=== PATIENT | female | born 1985 | race Hispanic/Latino ===

== ENCOUNTER 2018-05-27 12:11 | Inpatient (IN) | payer OTHER ==
[2018-05-27] MEDS ORDERED: Betamet Acet/Betamet Na Ph 30 MG/5 ML VIAL ONE (12:44)
[2018-05-27] MEDS ORDERED: Ondansetron PF 4 MG/2 ML Vial IVP PRN ×3 (12:53→17:27)
[2018-05-27] MEDS ORDERED: Promethazine HCl 25 MG/ML VIAL IM PRN ×2 (12:53→14:15)
[2018-05-27] MEDS ORDERED: NS / Oxytocin 40 units/1000ml 1,000 ML IV PRN (12:53)
[2018-05-27] MEDS ORDERED: Lidocaine 1% (PF) 30 ML VIAL SC PRN (12:53)
--- NOTE | 2018-05-27 13:03 | PDOC.LDHP ---
Labor and Delivery H&P Chief complaint: other HPI: Pt is a 32yo @ 33.2 weeks sent from clinic with abnormal antepartum surveillance for IUGR dx @ 32 weeks. Pt was dx approx one week age with IUGR @ 1%, TORCH labs drawn and MFM referral sent. Pt has not yet seen MFM, came today for BPP. BPP 2/8 (points only for movement) with decrease in SASKIA to 2cm from 12cm, denies LOF or leakage since last week. Pt also with abnormal UA doppler w SD appro x-5.6. Pt does report decreased FM over the last 24 hours. No PIH sx no labor sx. Current gestational age (weeks): 33 Due date: 07/13/18 Grav: 3 Para: 2 OB History Details: 2 x 2, this preg with noted thrombocytopenia and IUGR @ approx 32 weeks Current complications: IUGR, oligohydramnios, breech Abnormal US findings: Yes (breech, SASKIA 2cm, BPP 2/8, abn UA doppler) Current medications: pre- vitamins Previous surgical history: none Allergies/Adverse Reactions: Allergies Allergy/AdvReac Type Severity Reaction Status Date / Time No Known Allergies Allergy Verified 05/27/18 13:07 Social history: none - Physical Exam Vital signs reviewed and normal: yes (mild range BP noted on intake) General: NAD Heart: RRR Lungs: CTAB Abdomen: gravid Extremeties: no edema FHT: category 2 - OB Labs HIV: negative RPR: negative HEPSAg: negative Additional Labs: TORCH pending from last week - Assessment L&D Assessment: medically indicated induction - Plan Plan: admit to L&D, informed consent obtained, anesthesia consult for pain management -: A/P: 32yo @ 33.2 weeks with IUGR now breech with oligohydramnios, abn SD ratio, and decelerations on FHT. Pt rec'd Celestone approx 1 hr ago and has been counseled on risk and benefits of CS. Pt and are aware that our NICU is on divert and that after stablization the baby will be transported to the nearest NICU that can accept care. NICU in house aware and will be present for delivery.
[2018-05-27 13:08] VITALS: BMI 27.8
[2018-05-27] MEDS ORDERED: CEFAZOLIN 2 GM in Premix Bag 1 BAG IVPB SCH (13:15)
[2018-05-27] MEDS ORDERED: Bicitra 30 ML UDCUP PO SCH (13:15)
[2018-05-27] MEDS ORDERED: Midazolam HCl 2 mg/2 ml Vial ONE (13:20)
[2018-05-27] MEDS ORDERED: Fentanyl 250 MCG/5 ML VIAL ONE (13:20)
[2018-05-27] MEDS ORDERED: Oxytocin 10 UNITS/ML VIAL ONE (13:21)
[2018-05-27] MEDS ORDERED: Succinylcholine Chloride 20 MG/ML 10 ml SYRINGE FS ONE ×2 (13:21→14:10)
[2018-05-27] MEDS ORDERED: PROPOFOL 20 ML ONE (13:21)
[2018-05-27] MEDS ORDERED: Ondansetron PF 4 MG/2 ML Vial ONE ×2 (13:21→14:10)
[2018-05-27 13:29] LABS: Hemoglobin 14.3 g/dL (12.0-16.0); Mean Corpuscular HGB CONC 34.6 g/dL (32.0-36.0); Mean Corpuscular Hemoglobin 32.8 pg (27.0-31.0); Mean Corpuscular Volume 94.8 fL (78.0-98.0); RBC Distribution Width 11.7 % (11.5-14.5); Red Blood Cell (RBC) Count 4.37 mill/uL (4.20-5.40); White Blood Cell (WBC) Count 8.3 thou/uL (4.8-10.8)
[2018-05-27 13:44] LABS: Mean Platelet Volume 12.1 fL (7.4-10.4); Platelet Count 72 thou/uL (130-400)
[2018-05-27 13:58] LABS: HBSAg Index 0.25 S/CO (0-0.99); Hep B Surf Ag Non-Reactive S/CO (NonReactive); Syphilis Antibody Nonreactive (Nonreactive); Syphilis Antibody Index 0.03 S/CO (<1.00 Non-Reactive)
[2018-05-27] MEDS ORDERED: PROPOFOL 200 MG/20 ML VIAL ONE (14:10)
[2018-05-27] MEDS ORDERED: diphenhydrAMINE 25 MG CAP PO PRN ×2 (14:15→17:27)
[2018-05-27] MEDS ORDERED: Meperidine HCl/PF 25 MG/ML VIAL SLOW IVP PRN (14:15)
[2018-05-27] MEDS ORDERED: Communication Order-Pharmacy FS SCH (14:15)
[2018-05-27] MEDS ORDERED: fentaNYL Citrate/PF 2,000 MCG in Sodium Chloride 0.9% 60 ML IV PRN (14:15)
[2018-05-27] MEDS ORDERED: diphenhydrAMINE 50 MG/ML VIAL IM PRN (14:15)
[2018-05-27] MEDS ORDERED: Zolpidem Tartrate 5 MG TAB PO PRN (14:15)
[2018-05-27] MEDS ORDERED: L&D-Morphine 4 MG/ML VIAL SLOW IVP PRN (14:15)
[2018-05-27] MEDS ORDERED: Naloxone HCl 0.4 mg/ml Vial IV PRN (14:15)
[2018-05-27] MEDS ORDERED: HYDROmorphone 2 MG/ML VIAL SLOW IVP PRN (14:15)
[2018-05-27] MEDS ORDERED: diphenhydrAMINE 50 MG/ML VIAL IVP PRN (14:15)
[2018-05-27] MEDS ORDERED: Ketorolac Tromethamine 30 MG/ML VIAL IVP SCH (14:15)
[2018-05-27] MEDS ORDERED: Ondansetron HCl/PF 4 MG/2 ML Vial IVP PRN (14:15)
--- NOTE | 2018-05-27 14:24 | PDOC.OPDEL ---
OB Operative/Delivery Note Delivery Dr/Surgeon: Marcos Assist: Arnaud Pre-Delivery Diagnosis: medically indicated induction (IUGR, oligo, abn UA dopplers, BPP 2/8 and NRFHT on L and D) Procedure/Post Delivery Dx: primary low transverse CS Weeks gestation: 33 - Additional Findings/Plan Placenta delivered: manual removal findings: low transverse hysterotomy without extension, normal uterus, normal tubes, normal ovaries Estimated blood loss: 600ml Compilations/Other Findings: small for GA male infant, cry immediately at delivery, delivered from Prasanna breech Post delivery plan: routine recovery
[2018-05-27 15:06] LABS: Actual Bicarbonate (HCO3a) 26.4 mEq/L (22-28); Analyzer IN Cardio OR; Base Excess (BEa) -4.8 mEq/L (-2.0 to +3.0)
[2018-05-27] MEDS ORDERED: Adacel (T-DAP) 0.5 ML SYRINGE IM ONE (17:27)
[2018-05-27] MEDS ORDERED: Simethicone Chewable 80 MG TAB PO PRN (17:27)
[2018-05-27] MEDS ORDERED: Bisacodyl 10 MG SUPP PR PRN (17:27)
[2018-05-27] MEDS ORDERED: HYDROcodone/Acetaminophen 5/325 mg Tablet PO PRN (17:27)
[2018-05-27] MEDS ORDERED: Lanolin Ointment 7 GM TUBE TOP PRN (17:27)
[2018-05-27] MEDS ORDERED: Meperidine HCl/PF 25 MG/ML VIAL IM PRN (17:27)
[2018-05-27] MEDS ORDERED: NS / Oxytocin 40 units/1000ml 1,000 ML IV SCH (17:27)
[2018-05-27] MEDS ORDERED: Acetaminophen 325 MG TAB PO PRN (17:27)
--- NOTE | 2018-05-27 18:57 | OP ---
DATE OF PROCEDURE: 05/27/2018 PREOPERATIVE DIAGNOSES: 1. A 32-year-old, G3, P2 at 33 weeks and 2 days. 2. Intrauterine growth restriction. 3. Oligohydramnios. 4. Abnormal SD ratio. 5. BPP 2/8. 6. Nonreassuring heart tracing. 7. Thrombocytopenia. POSTOPERATIVE DIAGNOSIS: Status post primary low transverse section. [employer] LIBRARIAN: Brandon Lares MD ANESTHESIA: GETA per Dr. Allen. FINDINGS: 1. Low transverse hysterotomy without extension. 2. Hysterotomy hemostatic after closure. 3. Small with cry immediately delivered from bernadette breech presentation. Apgars and weight pending at the time of dictation now. 4. Placenta sent to Pathology. Cord gas pending. Cord blood collected. 5. Normal-appearing uterus, tubes, and ovaries bilaterally. 6. Surgical site hemostatic. INDICATIONS FOR PROCEDURE: Ms. Eurm Lopez is being followed closely in the office for intrauterine growth restriction with torch panels previously ordered and pending at the time of delivery. The patient presented today for scheduled ultrasound and was noted to have a decrease in her amniotic fluid from 12 cm to 2 cm. A biophysical profile was 2/8 and her umbilical artery Doppler was abnormal at - 5.6. The patient was sent to Labor and Delivery for monitoring. On Labor and Delivery, she received one dose of Celestone for lung maturity. She was counseled on observation versus transport versus expedited delivery and transport of the as our NICU was on divert. During short observation period of approximately an hour, the patient was noted to have spontaneous decelerations to the 60 to 80 beats per minute. The patient was counseled for the indication for section. DESCRIPTION OF PROCEDURE: The patient was taken back to the OR with IV fluids running because of thrombocytopenia with platelets of 72. The patient received general anesthesia. 2 g of Ancef was administered prior to the induction of anesthesia, and the prior to induction of anesthesia, the patient's abdomen had been prepped and draped in normal fashion for section. The surgeons were gowned, gloved, and ready to start the procedure. Once the patient was asleep, a Pfannenstiel skin incision was made with a scalpel. Skin incision was carried down through the subcutaneous tissue to the fascia. Once the fascia was reached, it was incised in the midline bluntly extended. Rectus muscles were bluntly entered. The peritoneum was bluntly entered and stretched laterally. An Raphael O retractor was placed into the abdominal cavity. Lower uterine segment was noted, and a low transverse hysterotomy was made with a scalpel. The uterus was bluntly entered. Scant amniotic fluid was noted. The infant's buttock was presenting at the hysterotomy with gentle pressure. The infant's buttock, lower extremities, and shoulders delivered spontaneously with gentle rotation. The head delivered easily as well. The baby was noted to have immediate cry after delivery. The nose and mouth were suctioned. The cord was doubly clamped and cut, and the was handed off to the NICU physician and nurses present. Cord blood was collected. The cord segment was collected. The placenta was delivered and sent for pathologic review. The uterus was exteriorized, massaged to firm, and cleared of clot and debris with a clean dry sponge. The hysterotomy was inspected with no extension noted. Monocryl suture was used in a running locked fashion to reapproximate hysterotomy. After the hysterotomy was closed, it was copiously irrigated and suctioned dry. No areas of bleeding were noted. The Raphael O retractor was then removed from the abdominal cavity. The muscle belly and fascia were inspected, and any small areas of bleeding were controlled with Bovie cauterization. The fascia was closed with PDS suture from corner to corner. The subcutaneous tissue was then irrigated and dried. Any small areas of bleeding were controlled with Bovie cauterization. Plain gut suture was used to reapproximate the subcutaneous layer. The skin was reapproximated with 4-0 Monocryl and dressed with Dermabond dressing. The uterine fundus was noted to be firm. There was minimal bleeding noted post as lochia. The patient was extubated and transferred to the recovery room in good condition. Job ID: [id number] [facility]
[2018-05-27] MEDS: Lactated Ringer's 1,000 ML IV SCH ×2 (22:57→22:58)
[2018-05-27] MEDS: Ketorolac Tromethamine 30 MG/ML VIAL IVP SCH (22:59)
[2018-05-27] MEDS: Docusate Calcium (SURFAK) 240 MG CAP PO SCH (22:59)
[2018-05-28] MEDS: Ketorolac Tromethamine 30 MG/ML VIAL IVP SCH ×3 (02:31→12:22)
[2018-05-28 07:56] LABS: Mean Corpuscular HGB CONC 34.9 g/dL (32.0-36.0); Mean Corpuscular Hemoglobin 33.1 pg (27.0-31.0); Mean Corpuscular Volume 94.8 fL (78.0-98.0); Mean Platelet Volume 11.4 fL (7.4-10.4); Platelet Count 84 thou/uL (130-400); RBC Distribution Width 11.7 % (11.5-14.5); Red Blood Cell (RBC) Count 4.24 mill/uL (4.20-5.40); White Blood Cell (WBC) Count 11.7 thou/uL (4.8-10.8)
[2018-05-28] MEDS: Lactated Ringer's 1,000 ML IV SCH ×3 (08:15→21:53)
[2018-05-28] MEDS: Docusate Calcium (SURFAK) 240 MG CAP PO SCH ×2 (08:25→21:52)
[2018-05-28] MEDS: Prenatal Vitamin 1 TAB PO SCH (08:25)
--- NOTE | 2018-05-28 10:26 | PDOC.PP ---
Post Progress Note Post Day #: 1 Subjective: POD1 sp 1CS for abnormal antepartum surveillance w IUGR. Doing well, minimal pain controlled w PROJ MGR, no N/V. Baby at S and W in CS, doing well per mom. PO intake tolerated: yes Flatus: yes Ambulation: yes Vital Signs (12 hours) Temp Pulse Resp BP Pulse Ox 05/28/18 07:55 97.8 F 89 20 153/88 H 99 05/28/18 05:00 98.8 F 69 18 120/63 05/28/18 00:50 98.2 F 69 18 116/76 Weight Weight 138 lb - Physical Examination General: NAD Respiratory: clear to auscultation bilaterally, non-labored breathing Abdominal: no distention Extremities: negative homans (B) Skin: CS incision dry & intact, no rash Neurological: no gross focal deficits Psychiatric: A&Ox3, normal affect Result Diagrams: 05/28/18 07:07 Additional Labs: Post Labs Blood Type O POSITIVE 05/27/18 15:26 Hep Bs Antigen Non-Reactive S/CO (NonReactive) 05/27/18 13:02 (1) delivery delivered Code(s): O82 - ENCOUNTER FOR DELIVERY WITHOUT INDICATION Status: Acute (2) Breech Code(s): O32.1XX0 - MATERNAL CARE FOR BREECH PRESENTATION, UNSP Status: Acute (3) 33 weeks gestation of Code(s): Z3A.33 - 33 WEEKS GESTATION OF Status: Acute (4) Intrauterine growth restriction (IUGR) affecting care of mother Code(s): O36.5990 - MATERN CARE FOR OTH OR SUSP POOR FETL GRTH, UNSP TRI, UNSP Status: Acute (5) Oligohydramnios Code(s): O41.00X0 - OLIGOHYDRAMNIOS, UNSP TRIMESTER, NOT APPLICABLE OR UNSP Status: Acute - Assessment/Plan A/P: POD1 doing well sp 1CS (w GETA for thrombocytopenia, IUGR, NRFHT) doing well. Baby transferred as NICU on divert yesterday. Plan for DC home tomorrow if patient continues to do well.
[2018-05-28] MEDS: HYDROcodone/Acetaminophen 5/325 mg Tablet PO PRN (12:17)
[2018-05-28] MEDS: Ibuprofen 800 MG TAB PO SCH (17:30)
[2018-05-29] MEDS: Ibuprofen 800 MG TAB PO SCH ×2 (00:38→06:32)
[2018-05-29] MEDS: Lactated Ringer's 1,000 ML IV SCH (06:31)
[2018-05-29] MEDS: HYDROcodone/Acetaminophen 5/325 mg Tablet PO PRN (08:08)
[2018-05-29] MEDS: Prenatal Vitamin 1 TAB PO SCH (08:08)
[2018-05-29] MEDS: Docusate Calcium (SURFAK) 240 MG CAP PO SCH (08:08)
[2018-05-29 08:24] VITALS: BP 120/73; TEMP 98.7
--- NOTE | 2018-05-29 08:59 | PDOC.PP ---
Post Progress Note Post Day #: 2 Subjective: doing well, minimal pain at left side of incision, pumping, worried about constipation, ready for DC PO intake tolerated: yes Flatus: yes Ambulation: yes Vital Signs (12 hours) Temp Pulse Resp BP Pulse Ox 05/29/18 08:24 98.7 F 72 20 120/73 98 05/29/18 04:18 98.4 F 88 18 106/65 05/29/18 00:35 98.3 F 83 18 110/59 L Weight Weight 138 lb - Physical Examination General: NAD Respiratory: non-labored breathing Abdominal: no distention Fundus firm & at: below umb Skin: CS incision dry & intact, no rash Neurological: no gross focal deficits Psychiatric: A&Ox3, normal affect Result Diagrams: 05/28/18 07:07 Additional Labs: Post Labs Blood Type O POSITIVE 05/27/18 15:26 Hep Bs Antigen Non-Reactive S/CO (NonReactive) 05/27/18 13:02 (1) delivery delivered Code(s): O82 - ENCOUNTER FOR DELIVERY WITHOUT INDICATION Status: Acute (2) Breech Code(s): O32.1XX0 - MATERNAL CARE FOR BREECH PRESENTATION, UNSP Status: Acute (3) 33 weeks gestation of Code(s): Z3A.33 - 33 WEEKS GESTATION OF Status: Acute (4) Intrauterine growth restriction (IUGR) affecting care of mother Code(s): O36.5990 - MATERN CARE FOR OTH OR SUSP POOR FETL GRTH, UNSP TRI, UNSP Status: Acute (5) Oligohydramnios Code(s): O41.00X0 - OLIGOHYDRAMNIOS, UNSP TRIMESTER, NOT APPLICABLE OR UNSP Status: Acute - Assessment/Plan POD2 sp 1CS @ 33 weeks, IUGR and non reassuring status. Desires DC today to be with baby at outside facility. Breast pump use, colace and Miralax as well as post op pain med use reviewed. FU 1 week for incision check.
[2018-05-29] MEDS ORDERED: Ibuprofen 800 MG TAB PO SCH (22:00)
== END 2018-05-29 11:09 | disposition home or self-care (01) | DRG 786 ==
LOC: L&D 12:11 → 3SW 18:07
PROVIDERS: ADMIT Obstetrics & Gynecology; ATTEND Obstetrics & Gynecology
PROC: 10D00Z1 Extraction of Products of Conception, Low, Open Approach (ICD-10-PCS; principal; 2018-05-27)
DX: O36.5930 Maternal care for other known or suspected poor fetal growth, third trimester, not applicable or unspecified (principal); O60.14X0 Preterm labor third trimester with preterm delivery third trimester, not applicable or unspecified; O41.03X0 Oligohydramnios, third trimester, not applicable or unspecified; O99.12 Other diseases of the blood and blood-forming organs and certain disorders involving the immune mechanism complicating childbirth; O32.1XX0 Maternal care for breech presentation, not applicable or unspecified; O76 Abnormality in fetal heart rate and rhythm complicating labor and delivery; Z3A.33 33 weeks gestation of pregnancy; Z37.0 Single live birth; D69.6 Thrombocytopenia, unspecified
CPT/HCPCS: 36415; 51702; 82805; 85027; 86780; 86850; 86900; 86901; 87340; 88307; 90715; 99285; J0702; J1885; J2250; J2405; J2590; J2704; J3010; J7050